=== PATIENT | male | born 1960 | race Caucasian/White ===

== ENCOUNTER 2016-05-27 02:46 | Emergency (ER) | payer OTHER ==
[2016-05-27] MEDS ORDERED: LOVASTATIN10 M1 PO (03:07)
[2016-05-27] MEDS ORDERED: METFORMIN PO (03:07)
[2016-05-27] MEDS ORDERED: GLIPIZIDE PO (03:07)
[2016-05-27] MEDS ORDERED: ASPIRIN81 M1 PO (03:08)
== END 2016-05-27 05:09 ==
LOC: EDMED 02:46
PROC: 0W3Q7ZZ Control Bleeding in Respiratory Tract, Via Natural or Artificial Opening (ICD-10-PCS; principal; 2016-05-27)
DX: R04.0 Epistaxis (principal); E11.9 Type 2 diabetes mellitus without complications; Z79.82 Long term (current) use of aspirin; Z79.899 Other long term (current) drug therapy